=== PATIENT | male | born 1995 | race Caucasian/White ===

== ENCOUNTER 2025-02-21 04:00 | Emergency (ER) | payer MEDICAID ==
[~2025-02-21] VITALS: Ht 177.8 cm; Wt 79.5 kg
[2025-02-21 04:06] VITALS: BP 133/90; PULSE 74; RESP 16; TEMP 96.8; O2SAT 95
--- NOTE | 2025-02-21 05:23 | Physician Documentation ---
History of Present Illness ~ Chief Complaint: See Chief Complaint Stated Complaint: RECTAL PAIN Time Seen by MD: 04:14 Source: patient, EMS, RN notes reviewed, EMS notes reviewed Mode of Arrival: EMS Exam Limitations: no limitations HPI Chief Complaint: Bubble in but Caveat: None Independent Historians: Paramedics History of Present Illness: Patient is a 29-year-old man who comes in concerned about after having a bowel movement he felt a bubble in his butt. Patient denies any pain. Patient denies any fever. No abdominal pain. No blood in the stool. No nausea vomiting diarrhea. Review of systems: All systems were reviewed and are negative except for what is indicated in the history of present illness. Past Medical History: Depression, anxiety Past Surgical History: None Social History: No tobacco use, no alcohol use Medications: Reviewed as documented Nursing Notes Allergies: Reviewed as documented in Nursing Notes Medication Reconciliation Allergies: Coded Allergies: midazolam (Verified Allergy, Unknown, 02/21/25) risperidone (Verified Allergy, Unknown, RASH, 02/21/25) Review of Systems All Other Systems at this time: Reviewed and Negative ROS Patient denies any other acute symptoms other than above. All other systems are negative Physical Exam Vital Signs: RN Vital Signs have been reviewed: Yes, Temperature: 96.8, Source: Oral, Heart Rate: 74, Respiratory Rate: 16, BP: 133/90, Pulse Oximetry: 95, Weight: 79.550 Physical Exam General Appearance: No distress Neck: supple, normal ROM, trachea midline Pulmonary: No respiratory distress, CTA, BS equal Cardiac: RRR, no murmur, rub or gallop, GI: nondistended, soft, nontender, normal bowel sounds, no guarding, no rebound Rectal: Normal rectal exam, no masses, no stool in rectal vault, no hemorrhoids Extremities: normal ROM, no swelling, non-tender Skin: intact, dry, warm, no rashes Neuro: AAOx3, speech is clear, no focal motor weakness Psych: normal affect, good eye contact, no apparent hallucination, normal speech Progress Results/Orders Results/Orders Vital Signs 02/21/25 04:06 Temp 96.8 Pulse 74 Resp 16 B/P (MAP) 133/90 Pulse Ox 95 Medical Decision Making Findings Differential diagnosis includes but is not limited to: Internal hemorrhoids, external hemorrhoids, rectal prolapse Emergency department course/medical decision-making: Patient's physical exam is normal. It is unclear what the patient was referring to as a bubble in his butt. Patient is stable for discharge. There is no evidence of a medical or surgical emergency. Departure Time of Disposition: 05:23 Disposition: 01 HOME / SELF CARE / HOMELESS Impression: Primary Impression: Encounter for medical screening examination Condition: Stable Discharge Instructions: Medical Screening Exam Referrals: NO PRIMARY CARE PROVIDER (PCP) Education Educated: Patient Educated regarding: diagnosis, treatment, need for follow up Signature Scribe Signature: No scribe Attestation: No scribe FRANCISCO GARCÍA MD Feb 21, 2025 05:23
== END 2025-02-21 05:39 | disposition home or self-care (01) ==
LOC: ER 04:01
DX: Z00.8 Encounter for other general examination (principal); F32.A Depression, unspecified; F41.9 Anxiety disorder, unspecified; Z88.8 Allergy status to other drugs, medicaments and biological substances
CPT/HCPCS: 99283

== ENCOUNTER 2025-05-06 04:21 | Emergency (ER) | payer MEDICAID ==
[~2025-05-06] VITALS: Ht 177.8 cm; Wt 72.8 kg
[2025-05-06 04:25] VITALS: BP 140/90; PULSE 74; RESP 18; O2SAT 99
--- NOTE | 2025-05-06 04:50 | Physician Documentation ---
History of Present Illness ~ Chief Complaint: Ankle pain Stated Complaint: GOUT/ANKLE PAIN Time Seen by MD: 04:49 HPI Patient presents to the emergency room with left ankle pain. He states he has history of gout and this is similar. He has had nothing for the pain. No i njury reported. Did walk significantly yesterday. Tetanus witin 5 years: No Medication Reconciliation Allergies: Coded Allergies: midazolam (Verified Allergy, Unknown, 05/06/25) risperidone (Verified Allergy, Unknown, RASH, 05/06/25) Review of Systems ROS All review of systems negative except as per HPI Physical Exam Vital Signs: Temperature: 97.9, Source: Oral, Heart Rate: 74, Respiratory Rate: 18, BP: 140/90, Pulse Oximetry: 99, Weight: 72.800 Physical Exam General: Patient is awake, alert, oriented x4 in no acute distress and well appearing.~ Head: Normocephalic and atraumatic. Eyes: Conjunctival normal. EOMI. PERRL. ENT: Mucous membranes moist. Neck: Supple, trachea is midline. Chest: Clear to auscultation bilaterally without rales, rhonchi, or wheezes. There is no accessory muscle use or retractions. Cardiac: RRR without murmurs, gallops, or rubs. Abd: Soft, nondistended, nontender, with normoactive bowel sounds. No guarding, rebound, or rigidity. Extremities: Swelling noted to left ankle without erythema. Neurovascularly intact Progress Results/Orders Results/Orders Vital Signs 05/06/25 04:25 Temp 97.9 Pulse 74 Resp 18 B/P (MAP) 140/90 Pulse Ox 99 Medical Decision Making Findings Patient presents to the emergency room with ankle pain as per HPI. Differentials include but are not limited to gout, fracture, dislocation, foreign body. Given history and physical exam we will treat him for gout. He had not feel emergent labs or imaging is necessary. Departure Disposition: 01 HOME / SELF CARE / HOMELESS Impression: Primary Impression: Gout attack Condition: Stable Discharge Instructions: Gout, [id number] Referrals: NO PRIMARY CARE PROVIDER (PCP) Prescriptions Acetaminophen (Tylenol Extra Strength) 500 Mg Tablet 2 TAB PO Q6H PRN PRN for pain or fever for 3 Days, #30 TAB Prov: JEREMIAS COX MD 05/06/25 Indomethacin (Indomethacin) 50 Mg Capsule 1 CAP PO Q8H for arthritis for 10 Days, #30 CAP 0 Refills with food Prov: JEREMIAS COX MD 05/06/25 Colchicine (Colchicine) 0.6 Mg Capsule 1 CAP PO Q6H, #6 CAP 0 Refills Prov: JEREMIAS COX MD 05/06/25 Prednisone* (Prednisone*) 20 Mg Tablet 1 TAB PO DAILY for 5 Days, #5 TAB Prov: JEREMIAS COX MD 05/06/25 Education Educated: Patient Educated regarding: diagnosis, treatment, need for follow up Signature Scribe Signature: no scribe Attestation: The note accurately reflects work and decisions made by me.Jeremias Cox MD 05/06/25 04:58 JEREMIAS COX MD May 06, 2025 04:50
[2025-05-06] MEDS ORDERED: PRED20TA PO (04:57)
[2025-05-06] MEDS ORDERED: INDO50CA96 PO (04:57)
[2025-05-06] MEDS ORDERED: ACET-1025 PO (04:57)
[2025-05-06] MEDS ORDERED: COLC0.6C3 PO (04:57)
[2025-05-06] MEDS: ondansetron 4mg rapidly disintigrating tab PO ONE (05:10)
[2025-05-06] MEDS: HYDROcodone/acetaminophen 5mg/325mg tablet PO ONE (05:10)
[2025-05-06] MEDS: ketorolac trometh 15mg/ml vial 15 MG/ML ML IM ONE (05:11)
[2025-05-06] MEDS: dexamethasone sod phosphate 10mg/ml inj IM STA (05:11)
[2025-05-06 07:58] VITALS: TEMP 97.9
== END 2025-05-06 07:59 | disposition home or self-care (01) ==
LOC: ER 04:22
DX: M10.9 Gout, unspecified (principal); Z88.8 Allergy status to other drugs, medicaments and biological substances
CPT/HCPCS: 96372; 99284; J1100; J1885